=== PATIENT | female | born 1975 | race Caucasian/White ===

== ENCOUNTER 2018-02-23 09:57 | Outpatient (REF) | payer OTHER, SELFPAY ==
[2018-02-23 19:34] LABS: HCT 40.1 % (36.0-46.0); HGB 13.7 g/dL (12.0-15.5); Mean Corp. HGB Concentration 34.2 g/dL (32.0-36.0); Mean Corpuscular Hemoglobin 31.1 pg (27.0-33.0); Mean Corpuscular Volume 90.9 fL (80-95); Mean Platelet Volume 11.1 fL (8.0-11.0); Platelet Count 263 x1000/uL (130-400); RBC 4.41 m/cumm (4.00-5.20); RBC Distribution Width 13.1 % (11.7-14.6)
[2018-02-23 19:48] LABS: TSH 1.77 uIU/mL (0.358-3.74)
[2018-02-23 20:02] LABS: Hemoglobin A1C 5.3 % (4.5-6.2)
== END 2018-02-23 10:17 ==
LOC: NCHCN 09:57
PROVIDERS: PCP Nurse Practitioner Family; Visit Provider Nurse Practitioner Family
DX: R53.83 Other fatigue (principal)
CPT/HCPCS: 85027; 83036; 84443

== ENCOUNTER 2019-05-20 16:31 | Outpatient (REF) | payer OTHER, SELFPAY ==
--- NOTE | 2019-05-20 15:50 | PAPFT_PTH ---
PATIENT: Neris Jones LOC: [facility] U#:[id number] AGE/SX: 43/F ROOM: RE05/20/[address]: Qing Irene : 1975 BED: DIS: 05/20/2019 SPEC #: [id number] RECD: 05/20/19 18:24 STATUS: JUANCARLOS REQuincy #: [id number] KOBI: 05/20/19 15:[address]: Qing Irene DEPT: [facility] Cytology RECD BY: Blanche Nettles Tissues: 1 - CX/ENDOCX FOR PAP SMEARS Procedures: PAP THIN PREP/[facility] Screening HPV DNA PROBE Comments: [id number]
[2019-05-20 18:59] LABS: Calculated LDL 156 mg/dL (<100); Cholesterol 246 mg/dL (<200); Glucose 97 mg/dL (74-106); HDL Cholesterol 32 mg/dL (40-60); Triglyceride 294 mg/dL (<150)
== END 2019-05-20 16:51 ==
LOC: NCHCN 16:31
PROVIDERS: PCP Nurse Practitioner Family; Visit Provider Nurse Practitioner Family
DX: R73.9 Hyperglycemia, unspecified (principal); Z13.220 Encounter for screening for lipoid disorders; Z12.4 Encounter for screening for malignant neoplasm of cervix; Z01.419 Encounter for gynecological examination (general) (routine) without abnormal findings
CPT/HCPCS: 80061; 82947; 88142; 87624

== ENCOUNTER 2023-08-21 15:09 | Outpatient (REF) | payer BC, SELFPAY ==
[2023-08-21 19:27] LABS: ALT 58 U/L (14-59); AST 29 U/L (15-37); Albumin 3.9 g/dL (3.4-5.0); Alkaline Phosphatase 108 U/L (46-116); Anion Gap 6.7 mmol/L (3-11); BUN 17 mg/dL (7-18); Bilirubin, Total 0.3 mg/dL (0.2-1.0); CO2 29.3 mmol/L (21.0-32.0); Calcium 9.4 mg/dL (8.5-10.1); Calculated LDL 167 mg/dL (<100); Chloride 106 mmol/L (98-107); Cholesterol 242 mg/dL (<200); Glucose 110 mg/dL (74-106); HDL Cholesterol 43 mg/dL (40-60); Potassium 4.6 mmol/L (3.5-5.1); Sodium 142 mmol/L (136-145); Total Protein 8.3 g/dL (6.4-8.2); Triglyceride 163 mg/dL (<150)
== END 2023-08-21 15:10 | disposition home or self-care (01) ==
LOC: NCHCN 15:09
PROVIDERS: PCP Nurse Practitioner Family; Visit Provider Physician Assistant
DX: Z13.6 Encounter for screening for cardiovascular disorders (principal)
CPT/HCPCS: 80053; 80061

== ENCOUNTER 2025-03-21 13:37 | Outpatient (REF) | payer BC, SELFPAY ==
--- NOTE | 2025-03-21 11:40 | PAPFT_PTH ---
PATIENT: Neris Jones LOC: [facility] U#:[id number] AGE/SX: 49/F ROOM: RE03/21/[address]: Ewa Puentes : 1975 BED: DIS: 03/21/2025 SPEC #: [id number] RECD: 03/24/25 12:55 STATUS: JUANCARLOS REQuincy #: [id number] KOBI: 03/21/25 11:[address]: Ewa Puentes DEPT: [facility] Cytology RECD BY: Blanche Nettles ENTERED: 03/24/25 12:55 SP TYPE: PAPFT OTHR DR: Qing Irene Tissues: 1 - CX/ENDOCX FOR PAP SMEARS Procedures: PAP THIN PREP/[facility] Screening HPV DNA PROBE Comments: [id number] (HPV 16 & 18/45)
[2025-03-21 20:16] LABS: ALT 135 U/L (10-49); AST 118 U/L (<34); Albumin 4.5 g/dL (3.2-5.0); Alkaline Phosphatase 131 U/L (46-116); Anion Gap 10.4 mmol/L (3-11); BUN 13 mg/dL (9-23); Bilirubin, Total 0.6 mg/dL (0.2-1.2); CO2 25.6 mmol/L (20.0-31.0); Calcium 9.3 mg/dL (8.3-10.6); Chloride 106 mmol/L (98-107); Cholesterol 202 mg/dL (<200); Glucose 93 mg/dL (74-106); HDL Cholesterol 39 mg/dL (>40); Potassium 3.9 mmol/L (3.5-5.1); Sodium 142 mmol/L (136-145); Total Protein 7.9 g/dL (5.7-8.2)
[2025-03-24 10:41] LABS: HIV-1/2 Ag & Ab Screen Negative (Negative)
[2025-03-24 10:53] LABS: Hepatitis C Ab w Rflx HCV PCR Negative (Negative)
== END 2025-03-21 13:38 | disposition home or self-care (01) ==
LOC: NCHCN 13:37
PROVIDERS: PCP Nurse Practitioner Family; Visit Provider Physician Assistant
DX: Z11.4 Encounter for screening for human immunodeficiency virus [HIV] (principal); Z11.59 Encounter for screening for other viral diseases; E78.5 Hyperlipidemia, unspecified; Z12.4 Encounter for screening for malignant neoplasm of cervix
CPT/HCPCS: 80053; 80061; 86803; 87389; 88142; 87624